=== PATIENT | female | born 1985 | race Two or more races ===

== ENCOUNTER 2023-02-01 13:25 | Inpatient (IN) | payer MEDICAID, OTHER ==
[~2023-02-01] VITALS: Ht 162.6 cm; Wt 86.8 kg
[2023-02-01] MEDS ORDERED: ACETAMINOPHEN 500 MG TAB PO ONE (13:45)
[2023-02-01 14:23] LABS: Basophils # (auto) 0 10 ^3/uL (0-0.2); Basophils % (auto) 0.2 % (0.0-2.0); Eosinophils # (auto) 0 10 ^3/uL (0-0.8); Hemoglobin 14.2 g/dL (12.2-16.2); Lymphocytes # (auto) 1.7 10 ^3/uL (0.4-5.4); Lymphocytes % (auto) 8.8 % (10.0-50.0); Mean Corpuscular Hemoglobin 30.1 pg (28.0-32.0); Mean Corpuscular Hgb Conc. 33.8 g/dL (32.0-36.0); Monocytes # (auto) 1.6 10 ^3/uL (0-1.3); Monocytes % (auto) 7.9 % (0.0-12.0); Neutrophils # (auto) 16.4 10 ^3/uL (1.6-8.6); Neutrophils % (auto) 83.1 % (37.0-80.0); Red Blood Cells 4.71 10^6/uL (4.0-5.20); Red Cell Distribution Width 13.3 % (11.8-14.3); White Blood Cell 19.8 10^3/uL (4.4-10.8)
[2023-02-01 14:37] LABS: Alanine Aminotransferase 81 U/L (7-40); Albumin 4.6 g/dL (3.2-4.8); Alkaline Phosphatase 175 U/L (46-116); Anion Gap 10 (5-15); Aspartate Aminotransferase 66 U/L (13-40); Blood Urea Nitrogen 7 mg/dL (9-23); Carbon Dioxide 21 mmol/L (20-30); Chloride 96 mmol/L (98-107); Glucose 115 mg/dL (74-106); Sodium 127 mmol/L (136-145); Total Protein 8.1 g/dL (5.7-8.2)
[2023-02-01] MEDS ORDERED: SODIUM CHLORIDE 0.9% 1,000 ML IV ONE (15:15)
[2023-02-01] MEDS ORDERED: POTASSIUM CHL 20MEQ/100ML 100 ML IV ONE (15:15)
[2023-02-01] MEDS ORDERED: POTASSIUM EFFERVESENT TAB 25 MEQ PO ONE (15:15)
[2023-02-01] MEDS ORDERED: IOHEXOL 300 MG/ML 100ML BOTTLE IJ ONE (15:28)
[2023-02-01] MEDS ORDERED: ONDANSETRON HCL 4 MG/2 ML VIAL IV ONE (16:15)
[2023-02-01] MEDS ORDERED: MORPHINE SULFATE 4 MG/ML SYR/VIAL IV ONE (16:15)
[2023-02-01 17:03] LABS: Salicylate < 3.0 mg/dL (2.8-20.0)
[2023-02-01] MEDS ORDERED: CEFTRIAXONE SODIUM 2 GM in D5W 5% 100 ML IV ONE (18:15)
[2023-02-01 19:20] VITALS: PULSE 119; RESP 20; O2SAT 96
[2023-02-01] MEDS ORDERED: ONDANSETRON HCL 4 MG/2 ML VIAL IV PRN (19:30)
[2023-02-01] MEDS ORDERED: MORPHINE SULFATE INJ 2 MG/ml SYRG IV PRN ×2 (19:30)
[2023-02-01] MEDS ORDERED: DOCUSATE SOD 100 MG CAP PO PRN (19:30)
[2023-02-01] MEDS ORDERED: TEMAZEPAM 15 MG CAP PO PRN (19:30)
[2023-02-01] MEDS ORDERED: NITROGLYCERIN 0.4 MG SL TAB SL PRN (19:30)
[2023-02-01] MEDS ORDERED: PIPERACILLIN-TAZOB 3.375GM 100 ML IV ONE (19:45)
[2023-02-01 20:44] LABS: Lactic Acid w/Reflex 2.1 mmol/L (0.4-2.0)
[2023-02-01] MEDS: ACETAMINOPHEN 500 MG TAB PO PRN (22:00)
[2023-02-02] MEDS: SOD CHL 0.9%/ KCL 20MEQ 1,000 ML IV SCH ×2 (00:05→10:47)
[2023-02-02 04:51] LABS: Basophils # (auto) 0 10 ^3/uL (0-0.2); Basophils % (auto) 0.2 % (0.0-2.0); Eosinophils # (auto) 0 10 ^3/uL (0-0.8); Eosinophils % (auto) 0.1 % (0.0-7.0); Hematocrit 39.5 % (36.0-46.0); Hemoglobin 13.3 g/dL (12.2-16.2); Lymphocytes % (auto) 5.5 % (10.0-50.0); Mean Corpuscular Hemoglobin 30.2 pg (28.0-32.0); Mean Corpuscular Hgb Conc. 33.6 g/dL (32.0-36.0); Mean Corpuscular Volume 89.9 fL (80.0-100.0); Monocytes # (auto) 1.9 10 ^3/uL (0-1.3); Neutrophils # (auto) 15.9 10 ^3/uL (1.6-8.6); Neutrophils % (auto) 84.2 % (37.0-80.0); Red Cell Distribution Width 13.3 % (11.8-14.3); White Blood Cell 18.9 10^3/uL (4.4-10.8)
[2023-02-02 05:09] LABS: Alanine Aminotransferase 64 U/L (7-40); Albumin 4.3 g/dL (3.2-4.8); Alkaline Phosphatase 161 U/L (46-116); Anion Gap 8 (5-15); Aspartate Aminotransferase 30 U/L (13-40); BUN/Creatinine Ratio 8.3 (10.0-20.0); Bilirubin, Total 3.6 mg/dL (0.2-1.0); Blood Urea Nitrogen 6 mg/dL (9-23); Calcium 8.9 mg/dL (8.7-10.4); Carbon Dioxide 26 mmol/L (20-30); Chloride 99 mmol/L (98-107); Glucose 103 mg/dL (74-106); Potassium 3.3 mmol/L (3.5-5.1); Total Protein 7.7 g/dL (5.7-8.2)
[2023-02-02 05:12] LABS: Sodium 133 mmol/L (136-145)
[2023-02-02 07:53] VITALS: PULSE 136; RESP 15; O2SAT 95
[2023-02-02] MEDS: SODIUM CHLORIDE 0.9% 1,000 ML IV SCH ×3 (08:17→08:50)
[2023-02-02] MEDS: PIPERACILLIN-TAZOB 3.375GM 100 ML IV SCH ×3 (08:17→22:00)
[2023-02-02] MEDS: ACETAMINOPHEN 500 MG TAB PO PRN (08:32)
[2023-02-02 09:24] LABS: Hepatitis B Surface Antigen Negative (Negative)
[2023-02-02] MEDS: PANTOPRAZOLE 40 MG TAB PO SCH (09:32)
[2023-02-02 09:44] LABS: Hepatitis A Ab IgM Negative
[2023-02-02 09:45] LABS: Hepatitis B Core IgM Negative; Hepatitis C Antibody Negative (Negative)
[2023-02-02 12:27] LABS: COVID19 ANTIGEN SOFIA FIA NEGATIVE (NEGATIVE); Rapid Influenza A Negative (Negative); Rapid Influenza B Negative (Negative)
[2023-02-02 15:32] VITALS: PULSE 113; RESP 19; O2SAT 98
[2023-02-02 15:40] LABS: Urine Bacteria NONE SEEN /hpf (None Seen); Urine Blood TRACE /uL (Negative); Urine Clarity HAZY (Clear); Urine Color Yellow (Yellow); Urine Protein, UAD 1+ (Negative); Urine Specific Gravity 1.016 (1.001-1.035); Urine WBC 16 /hpf (0 - 5)
[2023-02-02 15:51] LABS: Amphetamine Screen, Urine Neg (NEGATIVE)
[2023-02-02 15:52] LABS: Barbiturate Scree,Urine Neg (NEGATIVE); Benzodiazephine Screen, Urine Neg (NEGATIVE); Cocaine Screen, Urine Neg (NEGATIVE)
[2023-02-02 15:53] LABS: Cannabinoid Screen, Urine Pos (NEGATIVE); Opiate Scree,Urine Neg (NEGATIVE); Phencyclidine Screen, Urine Neg (NEGATIVE)
[2023-02-02] MEDS ORDERED: SERT25TA84 PO (16:36)
[2023-02-02 20:00] VITALS: PULSE 101; PULSE 110; RESP 18; O2SAT 97
[2023-02-02] MEDS: HYDROcodone-ACET 5/325MG TAB PO PRN (20:41)
[2023-02-02 22:00] VITALS: BP 103/73; PULSE 101; RESP 18; TEMP 98.8; O2SAT 97
[2023-02-03 05:00] VITALS: BP 99/46; PULSE 87; RESP 18; TEMP 99.4; O2SAT 97
[2023-02-03 05:36] LABS: Basophils # (auto) 0.1 10 ^3/uL (0-0.2); Basophils % (auto) 0.4 % (0.0-2.0); Eosinophils # (auto) 0.1 10 ^3/uL (0-0.8); Eosinophils % (auto) 0.6 % (0.0-7.0); Hematocrit 33.8 % (36.0-46.0); Hemoglobin 11.3 g/dL (12.2-16.2); Lymphocytes # (auto) 1.7 10 ^3/uL (0.4-5.4); Lymphocytes % (auto) 11.1 % (10.0-50.0); Mean Corpuscular Hgb Conc. 33.6 g/dL (32.0-36.0); Mean Corpuscular Volume 89.4 fL (80.0-100.0); Monocytes # (auto) 1.8 10 ^3/uL (0-1.3); Monocytes % (auto) 11.7 % (0.0-12.0); Neutrophils # (auto) 11.6 10 ^3/uL (1.6-8.6); Neutrophils % (auto) 76.2 % (37.0-80.0); Red Blood Cells 3.78 10^6/uL (4.0-5.20); Red Cell Distribution Width 13.4 % (11.8-14.3); White Blood Cell 15.2 10^3/uL (4.4-10.8)
[2023-02-03] MEDS: SOD CHL 0.9%/ KCL 20MEQ 1,000 ML IV SCH ×2 (06:15→16:15)
[2023-02-03] MEDS: PIPERACILLIN-TAZOB 3.375GM 100 ML IV SCH ×3 (06:18→22:58)
[2023-02-03 09:13] VITALS: BP 97/62; PULSE 72; RESP 16; TEMP 98.2; O2SAT 97
[2023-02-03] MEDS: PANTOPRAZOLE 40 MG TAB PO SCH (09:36)
[2023-02-03 11:11] LABS: Chloride 105 mmol/L (98-107); Potassium 3.5 mmol/L (3.5-5.1); Sodium 136 mmol/L (136-145)
[2023-02-03 11:12] LABS: Anion Gap 7 (5-15); Carbon Dioxide 24 mmol/L (20-30)
[2023-02-03 11:13] LABS: Calcium 8.3 mg/dL (8.7-10.4)
[2023-02-03 11:17] LABS: Glucose 87 mg/dL (74-106)
[2023-02-03 11:24] LABS: BUN/Creatinine Ratio 7.8 (10.0-20.0); Blood Urea Nitrogen < 5 mg/dL (9-23)
[2023-02-03] MEDS: HYDROcodone-ACET 5/325MG TAB PO PRN ×2 (14:03→22:56)
[2023-02-03 14:34] VITALS: BP 96/53; PULSE 67; RESP 18; TEMP 98.6; O2SAT 98
[2023-02-03 17:10] VITALS: BP 115/48; PULSE 88; RESP 18; TEMP 96.9; O2SAT 96
[2023-02-03 20:00] VITALS: PULSE 86
[2023-02-03 22:00] VITALS: BP 105/57; PULSE 80; RESP 18; TEMP 98.4; O2SAT 94
[2023-02-03] MEDS: DOCUSATE SOD 100 MG CAP PO SCH (22:56)
[2023-02-04] MEDS: SOD CHL 0.9%/ KCL 20MEQ 1,000 ML IV SCH (02:15)
[2023-02-04 04:00] VITALS: PULSE 68
[2023-02-04 05:00] VITALS: BP 95/59; PULSE 70; RESP 18; TEMP 97.9; O2SAT 95
[2023-02-04] MEDS: HYDROcodone-ACET 5/325MG TAB PO PRN (05:07)
[2023-02-04] MEDS: PIPERACILLIN-TAZOB 3.375GM 100 ML IV SCH ×3 (05:26→22:15)
[2023-02-04 06:15] LABS: Basophils # (auto) 0 10 ^3/uL (0-0.2); Basophils % (auto) 0.4 % (0.0-2.0); Eosinophils # (auto) 0.1 10 ^3/uL (0-0.8); Eosinophils % (auto) 1.2 % (0.0-7.0); Hematocrit 35.3 % (36.0-46.0); Hemoglobin 11.9 g/dL (12.2-16.2); Lymphocytes % (auto) 21.1 % (10.0-50.0); Mean Corpuscular Hemoglobin 30.5 pg (28.0-32.0); Mean Corpuscular Hgb Conc. 33.8 g/dL (32.0-36.0); Mean Corpuscular Volume 90.3 fL (80.0-100.0); Monocytes % (auto) 10.5 % (0.0-12.0); Neutrophils # (auto) 6.2 10 ^3/uL (1.6-8.6); Neutrophils % (auto) 66.8 % (37.0-80.0); Red Blood Cells 3.91 10^6/uL (4.0-5.20); Red Cell Distribution Width 13.4 % (11.8-14.3); White Blood Cell 9.3 10^3/uL (4.4-10.8)
[2023-02-04 06:33] LABS: Chloride 103 mmol/L (98-107); Potassium 3.1 mmol/L (3.5-5.1); Sodium 137 mmol/L (136-145)
[2023-02-04 06:34] LABS: Anion Gap 8 (5-15); Calcium 8.6 mg/dL (8.7-10.4); Carbon Dioxide 26 mmol/L (20-30)
[2023-02-04 06:39] LABS: Blood Urea Nitrogen 6 mg/dL (9-23); Glucose 94 mg/dL (74-106)
[2023-02-04] MEDS: PANTOPRAZOLE 40 MG TAB PO SCH (09:47)
[2023-02-04] MEDS: DOCUSATE SOD 100 MG CAP PO SCH ×2 (09:47→22:16)
[2023-02-04] MEDS ORDERED: POTASSIUM EFFERVESENT TAB 25 MEQ PO ONE (11:30)
[2023-02-04] MEDS: SOD CHL 0.9%/ KCL 40MEQ 1,000 ML IV SCH ×2 (11:31→22:20)
[2023-02-04] MEDS ORDERED: LACTULOSE 20Gm/30ML SOLN PO ONE (13:30)
[2023-02-04 17:00] VITALS: BP 92/52; PULSE 78; RESP 16; TEMP 98.5; O2SAT 97
[2023-02-04 22:00] VITALS: BP 90/52; PULSE 76; RESP 17; TEMP 98.3; O2SAT 97
[2023-02-05 05:00] VITALS: BP 90/59; PULSE 82; RESP 15; TEMP 98.6; O2SAT 96
[2023-02-05] MEDS: PIPERACILLIN-TAZOB 3.375GM 100 ML IV SCH ×2 (05:42→14:00)
[2023-02-05 07:14] LABS: Alanine Aminotransferase 66 U/L (7-40); Albumin 3.8 g/dL (3.2-4.8); Alkaline Phosphatase 192 U/L (46-116); Anion Gap 6 (5-15); Aspartate Aminotransferase 42 U/L (13-40); Bilirubin, Total 1.4 mg/dL (0.2-1.0); Calcium 8.7 mg/dL (8.7-10.4); Carbon Dioxide 26 mmol/L (20-30); Chloride 105 mmol/L (98-107); Glucose 90 mg/dL (74-106); Potassium 3.6 mmol/L (3.5-5.1); Sodium 137 mmol/L (136-145); Total Protein 6.8 g/dL (5.7-8.2)
[2023-02-05 07:18] LABS: BUN/Creatinine Ratio 7.1 (10.0-20.0); Blood Urea Nitrogen < 5 mg/dL (9-23)
[2023-02-05] MEDS: SOD CHL 0.9%/ KCL 40MEQ 1,000 ML IV SCH (07:30)
[2023-02-05 08:44] VITALS: BP 98/51; PULSE 67; RESP 21; TEMP 98; O2SAT 97
[2023-02-05] MEDS: PANTOPRAZOLE 40 MG TAB PO SCH (09:53)
[2023-02-05] MEDS: ACETAMINOPHEN 500 MG TAB PO PRN (09:53)
[2023-02-05] MEDS: DOCUSATE SOD 100 MG CAP PO SCH (09:55)
[2023-02-05] MEDS ORDERED: LACTULOSE 20Gm/30ML SOLN PO SCH (10:00)
[2023-02-05 10:34] LABS: Basophils # (auto) 0.1 10 ^3/uL (0-0.2); Eosinophils # (auto) 0.2 10 ^3/uL (0-0.8); Eosinophils % (auto) 1.6 % (0.0-7.0); Hematocrit 33.8 % (36.0-46.0); Hemoglobin 11.2 g/dL (12.2-16.2); Lymphocytes # (auto) 1.9 10 ^3/uL (0.4-5.4); Lymphocytes % (auto) 20.9 % (10.0-50.0); Mean Corpuscular Hemoglobin 29.9 pg (28.0-32.0); Mean Corpuscular Hgb Conc. 33.1 g/dL (32.0-36.0); Mean Corpuscular Volume 90.2 fL (80.0-100.0); Monocytes % (auto) 10.4 % (0.0-12.0); Neutrophils # (auto) 6.2 10 ^3/uL (1.6-8.6); Neutrophils % (auto) 66.1 % (37.0-80.0); Red Blood Cells 3.75 10^6/uL (4.0-5.20); Red Cell Distribution Width 13.4 % (11.8-14.3); White Blood Cell 9.3 10^3/uL (4.4-10.8)
[2023-02-05] MEDS ORDERED: CEPH500C PO (10:59)
[2023-02-05 12:49] VITALS: BP 101/69; PULSE 64; RESP 21; TEMP 98; O2SAT 97
[2023-02-05 13:09] VITALS: BP 101/69; PULSE 64; RESP 21; TEMP 36.7; O2SAT 97
[2023-02-06 10:40] LABS: Hepatitis B Core Total AB Negative (Negative)
[2023-02-06 12:05] LABS: Hepatitis A Total Antibody Negative (Negative)
[2023-02-06 12:06] LABS: Hepatitis B Surface Antibody Positive (Negative); Hepatitis B Surface Antigen Negative (Negative); Hepatitis C Antibody Negative (Negative)
== END 2023-02-05 15:14 | disposition home or self-care (01) | DRG 720 ==
LOC: ER 13:25 → TELE 19:26 → CENTRAL 19:26 → TELE-CENTR 02-02 16:17 → CENTRAL 02-02 17:12
PROVIDERS: ADMIT Nurse Practitioner Acute Care; ATTEND Nurse Practitioner Acute Care
DX: A41.9 Sepsis, unspecified organism (principal); K76.0 Fatty (change of) liver, not elsewhere classified; E87.1 Hypo-osmolality and hyponatremia; B17.9 Acute viral hepatitis, unspecified; N12 Tubulo-interstitial nephritis, not specified as acute or chronic; E87.6 Hypokalemia; J45.909 Unspecified asthma, uncomplicated; K59.00 Constipation, unspecified; R74.01 Elevation of levels of liver transaminase levels; E66.9 Obesity, unspecified; F17.290 Nicotine dependence, other tobacco product, uncomplicated; M54.50 Low back pain, unspecified; N30.90 Cystitis, unspecified without hematuria; Z20.822 Contact with and (suspected) exposure to COVID-19; D64.9 Anemia, unspecified; I10 Essential (primary) hypertension; R79.89 Other specified abnormal findings of blood chemistry; Z87.440 Personal history of urinary (tract) infections; Z68.32 Body mass index [BMI] 32.0-32.9, adult
CPT/HCPCS: 36415; 71045; 74178; 76705; 80048; 80053; 80074; 80307; 80320; 80329; 81001; 82248; 82550; 83605; 83690; 83735; 83880; 84702; 85025; 86704; 86706; 86708; 86803; 87040; 87086; 87340; 87426; 87804; G0378; J0696; J2405; J2543; J7060

== ENCOUNTER 2023-11-28 09:18 | Inpatient (IN) | payer MEDICAID ==
[~2023-11-28] VITALS: Ht 165.1 cm; Wt 80.1 kg
[~2023-11-28 09:18] MED LIST: CEPH500C PO; SERT25TA84 PO
[2023-11-28 10:14] LABS: Anion Gap 10 (5-15); Carbon Dioxide 24 mmol/L (20-31); Chloride 106 mmol/L (98-107); Potassium 3.7 mmol/L (3.5-5.1); Sodium 140 mmol/L (136-145)
[2023-11-28 10:15] LABS: Calcium 10.5 mg/dL (8.7-10.4)
[2023-11-28 10:20] LABS: BUN/Creatinine Ratio 8.3 (10.0-20.0); Blood Urea Nitrogen 6 mg/dL (9-23); Glucose 88 mg/dL (74-106)
[2023-11-28 10:23] LABS: Basophils # (auto) 0.1 10 ^3/uL (0-0.2); Basophils % (auto) 0.8 % (0.0-2.0); Eosinophils # (auto) 0.2 10 ^3/uL (0-0.8); Eosinophils % (auto) 1.8 % (0.0-7.0); Hematocrit 42.1 % (36.0-46.0); Hemoglobin 14.6 g/dL (12.2-16.2); Lymphocytes # (auto) 2.8 10 ^3/uL (0.4-5.4); Lymphocytes % (auto) 24.8 % (10.0-50.0); Mean Corpuscular Hemoglobin 31.7 pg (28.0-32.0); Mean Corpuscular Hgb Conc. 34.6 g/dL (32.0-36.0); Mean Corpuscular Volume 91.4 fL (80.0-100.0); Monocytes # (auto) 0.7 10 ^3/uL (0-1.3); Monocytes % (auto) 6.1 % (0.0-12.0); Neutrophils # (auto) 7.6 10 ^3/uL (1.6-8.6); Neutrophils % (auto) 66.5 % (37.0-80.0); Platelet Count (auto) 342 10^3/uL (140-450); Red Blood Cells 4.61 10^6/uL (4.0-5.20); Red Cell Distribution Width 13.3 % (11.8-14.3); White Blood Cell 11.4 10^3/uL (4.4-10.8)
[2023-11-28 13:00] VITALS: PULSE 84; RESP 16; O2SAT 100
[2023-11-28] MEDS: SODIUM CHLORIDE 0.9% 1,000 ML IV ONE (13:15)
[2023-11-28] MEDS: ONDANSETRON HCL 4 MG/2 ML VIAL IV ONE (14:25)
[2023-11-28] MEDS: MORPHINE SULFATE 4 MG/ML SYR/VIAL IV ONE (14:29)
[2023-11-28] MEDS: cefTRIAXone 1GM/50ML D5W 50 ML IV ONE (14:29)
[2023-11-28 14:35] LABS: Urine Blood Negative /uL (Negative); Urine Clarity Turbid (Clear); Urine Color Dark-Orange (Yellow); Urine Mucus MODERATE (None Seen); Urine Protein, UAD 1+ (Negative); Urine Specific Gravity 1.032 (1.001-1.035); Urine Urobilinogen 2 mg/dL (Negative); Urine WBC 44 /hpf (0 - 5)
[2023-11-28] MEDS ORDERED: ACETAMINOPHEN 325 MG TAB PO PRN (16:30)
[2023-11-28] MEDS ORDERED: MORPHINE SULFATE INJ 2 MG/ml SYRG IV PRN (17:00)
[2023-11-28] MEDS ORDERED: NITROGLYCERIN 0.4 MG SL TAB SL PRN (17:00)
[2023-11-28 19:10] VITALS: PULSE 82; RESP 16; O2SAT 98
[2023-11-28] MEDS: ONDANSETRON HCL 4 MG/2 ML VIAL IV PRN (19:35)
[2023-11-28] MEDS: MORPHINE SULFATE INJ 2 MG/ml SYRG IV PRN (19:43)
[2023-11-28] MEDS: SODIUM CHLORIDE 0.9% 1,000 ML IV SCH (19:43)
[2023-11-28 22:40] VITALS: BP 118/69; PULSE 67; RESP 17; TEMP 98.1; O2SAT 99
[2023-11-28 23:35] VITALS: BP 118/69; PULSE 67; RESP 17; TEMP 98.1; O2SAT 99
[2023-11-28 23:37] VITALS: BP 118/69; PULSE 67; RESP 17; TEMP 98.1; O2SAT 99
[2023-11-29] MEDS ORDERED: SERT-289 PO (00:36)
[2023-11-29] MEDS ORDERED: MONT-8 PO (00:36)
[2023-11-29] MEDS ORDERED: CETI-175 PO (00:37)
[2023-11-29] MEDS: HYDROcodone-ACET 5/325MG TAB PO PRN (00:47)
[2023-11-29 00:56] VITALS: BP 122/71; PULSE 73; RESP 17; TEMP 98.1; O2SAT 99
[2023-11-29 04:55] VITALS: BP 118/75; PULSE 86; RESP 17; TEMP 98.2; O2SAT 98
[2023-11-29 06:21] LABS: Basophils # (auto) 0.1 10 ^3/uL (0-0.2); Basophils % (auto) 0.8 % (0.0-2.0); Eosinophils # (auto) 0.2 10 ^3/uL (0-0.8); Eosinophils % (auto) 2.3 % (0.0-7.0); Lymphocytes # (auto) 2.6 10 ^3/uL (0.4-5.4); Mean Corpuscular Hemoglobin 31.1 pg (28.0-32.0); Mean Corpuscular Hgb Conc. 34.3 g/dL (32.0-36.0); Mean Corpuscular Volume 90.5 fL (80.0-100.0); Monocytes # (auto) 0.7 10 ^3/uL (0-1.3); Monocytes % (auto) 7.6 % (0.0-12.0); Neutrophils % (auto) 62.3 % (37.0-80.0); Nucleated Red Blood Cells % 0.3 %; Platelet Count (auto) 281 10^3/uL (140-450); Red Blood Cells 4.19 10^6/uL (4.0-5.20); Red Cell Distribution Width 13.3 % (11.8-14.3); White Blood Cell 9.7 10^3/uL (4.4-10.8)
[2023-11-29 06:34] LABS: Alanine Aminotransferase 17 U/L (7-40); Albumin 4.1 g/dL (3.2-4.8); Alkaline Phosphatase 87 U/L (46-116); Anion Gap 9 (5-15); Aspartate Aminotransferase 11 U/L (13-40); BUN/Creatinine Ratio 7.6 (10.0-20.0); Bilirubin, Total 2.3 mg/dL (0.2-1.0); Blood Urea Nitrogen 5 mg/dL (9-23); Calcium 9.6 mg/dL (8.7-10.4); Carbon Dioxide 22 mmol/L (20-31); Chloride 108 mmol/L (98-107); Glucose 87 mg/dL (74-106); Potassium 3.4 mmol/L (3.5-5.1); Sodium 139 mmol/L (136-145); Total Protein 6.9 g/dL (5.7-8.2)
[2023-11-29] MEDS: cefTRIAXone 1GM/50ML D5W 50 ML IV SCH (08:43)
[2023-11-29 09:00] VITALS: BP 109/62; PULSE 82; RESP 16; TEMP 97.7; O2SAT 98
[2023-11-29] MEDS: DOCUSATE SOD 100 MG CAP PO PRN (09:13)
[2023-11-29] MEDS: POTASSIUM EFFERVESENT TAB 25 MEQ PO ONE (09:13)
[2023-11-29 09:59] LABS: Triglycerides 103 mg/dL (< 150)
[2023-11-29 10:00] LABS: LDL Cholesterol 89 mg/dL (< 100)
[2023-11-29 10:01] LABS: Cholesterol 137 mg/dL (< 200); HDL Cholesterol 33 mg/dL (40-59)
[2023-11-29 13:00] VITALS: BP 101/42; PULSE 74; RESP 16; TEMP 98.5; O2SAT 98
[2023-11-29 13:18] LABS: Amphetamine Screen, Urine Neg (NEGATIVE); Barbiturate Scree,Urine Neg (NEGATIVE); Benzodiazephine Screen, Urine Neg (NEGATIVE); Cannabinoid Screen, Urine Pos (NEGATIVE); Cocaine Screen, Urine Neg (NEGATIVE); Opiate Scree,Urine Neg (NEGATIVE); Phencyclidine Screen, Urine Neg (NEGATIVE)
[2023-11-29] MEDS: POLYETHYLENE GLYCOL 17 GM PWDR PO ONE (15:00)
[2023-11-29 16:46] VITALS: BP 103/34; PULSE 87; RESP 16; TEMP 98.1; O2SAT 97
[2023-11-29] MEDS: LACTULOSE 20Gm/30ML SOLN PO ONE (18:58)
[2023-11-29] MEDS: FAMOTIDINE (10MG/ML) 2ML VL IV SCH (20:22)
[2023-11-29 21:00] VITALS: BP 104/70; PULSE 70; RESP 18; TEMP 98.9; O2SAT 98
[2023-11-30 05:00] VITALS: BP 105/49; PULSE 83; RESP 17; TEMP 98.1; O2SAT 98
[2023-11-30 06:05] LABS: Basophils # (auto) 0.1 10 ^3/uL (0-0.2); Basophils % (auto) 0.8 % (0.0-2.0); Eosinophils # (auto) 0.3 10 ^3/uL (0-0.8); Eosinophils % (auto) 3.4 % (0.0-7.0); Hematocrit 39.9 % (36.0-46.0); Hemoglobin 13.7 g/dL (12.2-16.2); Lymphocytes # (auto) 2.7 10 ^3/uL (0.4-5.4); Lymphocytes % (auto) 36.6 % (10.0-50.0); Mean Corpuscular Hemoglobin 31.2 pg (28.0-32.0); Mean Corpuscular Hgb Conc. 34.2 g/dL (32.0-36.0); Monocytes # (auto) 0.5 10 ^3/uL (0-1.3); Monocytes % (auto) 7.2 % (0.0-12.0); Neutrophils # (auto) 3.9 10 ^3/uL (1.6-8.6); Nucleated Red Blood Cells % 0.2 %; Platelet Count (auto) 296 10^3/uL (140-450); Red Blood Cells 4.39 10^6/uL (4.0-5.20); Red Cell Distribution Width 13.4 % (11.8-14.3); White Blood Cell 7.5 10^3/uL (4.4-10.8)
[2023-11-30 06:16] LABS: Anion Gap 8 (5-15); Carbon Dioxide 24 mmol/L (20-31); Chloride 108 mmol/L (98-107); Potassium 3.9 mmol/L (3.5-5.1); Sodium 140 mmol/L (136-145)
[2023-11-30 06:17] LABS: Calcium 10.1 mg/dL (8.7-10.4)
[2023-11-30 06:22] LABS: Glucose 84 mg/dL (74-106); Magnesium 2.2 mg/dL (1.6-2.6)
[2023-11-30 06:42] LABS: BUN/Creatinine Ratio 6.7 (10.0-20.0); Blood Urea Nitrogen < 5 mg/dL (9-23)
[2023-11-30 08:30] VITALS: PULSE 86; RESP 17; O2SAT 96
[2023-11-30 09:00] VITALS: BP 100/43; PULSE 86; RESP 17; TEMP 98.4; O2SAT 96
[2023-11-30] MEDS ORDERED: LEVO500T91 PO (09:13)
[2023-11-30] MEDS: FLEET ENEMA(ADULT) 135 ML PR ONE (10:38)
== END 2023-11-30 13:05 | disposition home or self-care (01) | DRG 463 ==
LOC: ER 09:18 → OVERFLOW 16:50 → WEST WING 22:40
PROVIDERS: ADMIT Internal Medicine; ATTEND Internal Medicine
DX: N12 Tubulo-interstitial nephritis, not specified as acute or chronic (principal); E80.6 Other disorders of bilirubin metabolism; F17.200 Nicotine dependence, unspecified, uncomplicated; J45.909 Unspecified asthma, uncomplicated; E87.6 Hypokalemia; K59.00 Constipation, unspecified; Z79.899 Other long term (current) drug therapy
CPT/HCPCS: 36415; 76775; 80048; 80053; 80061; 80307; 81001; 83036; 83735; 84443; 85025; 87086; 87088; 87186; 96361; 96365; 96375; G0378; J2405; J3490